=== PATIENT | female | born 1990 | race Caucasian/White ===

== ENCOUNTER 2017-05-12 15:55 | Inpatient (IN) | payer MEDICAID, OTHER ==
[~2017-05-12] VITALS: Ht 167.6 cm; Wt 67.6 kg
[2017-05-12 17:54] LABS: Albumin 2.4 g/dL (3.4-5.0); BUN/Creatinine Ratio 9.3; Calcium 8.7 mg/dL (8.5-10.1); Potassium 3.6 mmol/L (3.5-5.1)
[2017-05-12 17:58] LABS: Bilirubin, Total 0.9 mg/dL (0.2-1.0); Total Protein 6.3 g/dL (6.4-8.2)
[2017-05-12] MEDS ORDERED: PREN27TA7 PO (18:07)
[2017-05-12] MEDS ORDERED: LACT. RINGERS/OXYTOCIN 20UNITS 1,000 ML IV SCH (18:43)
[2017-05-12] MEDS ORDERED: NALBUPHINE HCL 10 MG/1ml INJECTION IV PRN (18:45)
[2017-05-12] MEDS ORDERED: LIDOCAINE 2%HCL (LOCAL ANESTH.) INJ 20ML MDV IJ ONE (18:45)
[2017-05-12] MEDS ORDERED: METHYLERGONOVINE MALEATE 0.2 MG/ML AMP IM PRN (18:45)
[2017-05-12] MEDS ORDERED: PHISODERM TOP SOLN 240ML BTL TOP PRN (18:45)
[2017-05-12] MEDS ORDERED: WITCH HAZEL-GLYCERIN PAD TOP PRN (18:45)
[2017-05-12] MEDS ORDERED: DERMOPLAST 60ML BOTTLE TOP PRN (18:45)
[2017-05-12 19:04] LABS: Urine Bilirubin Negative (Negative); Urine Blood TRACE /uL (Negative); Urine Color Yellow (Yellow); Urine Glucose 1+ mg/dL (Normal); Urine Ketone 1+ (Negative); Urine Mucus FEW (None Seen); Urine Nitrite Negative (Negative); Urine RBC 6 /hpf (0 - 4); Urine Squamous Epithelial Cell MOD /hpf (<5); Urine Urobilinogen Normal (Negative)
[2017-05-12 19:40] LABS: Basophils # (auto) 0 uL; Basophils % (auto) 0.5 % (0.0-2.0); Eosinophils # (auto) 0.1 uL; Eosinophils % (auto) 0.9 % (0.0-7.0); Hematocrit 32.6 % (36.0-46.0); Hemoglobin 11.1 g/dL (12.2-16.2); Lymphocytes # (auto) 1.6 uL; Lymphocytes % (auto) 19.8 % (10.0-50.0); Mean Corpuscular Hemoglobin 30.3 pg (28.0-32.0); Mean Corpuscular Volume 89.2 fL (80.0-100.0); Mean Platelet Volume 10.4 fL (7.4-10.4); Monocytes # (auto) 0.6 uL; Neutrophils % (auto) 71.8 % (37.0-80.0); Platelet Count (auto) 199 10^3/uL (140-450); White Blood Cell 8.3 10^3/uL (4.4-10.8)
[2017-05-12 19:50] LABS: INR 0.9 (0.9-1.15); Prothrombin Time 9.8 sec (9.37-12.3)
[2017-05-12] MEDS: LACTATED RINGER'S 1,000 ML IV SCH (21:15)
[2017-05-12] MEDS: CLINDAMYCIN 900MG IV 50 ML IV SCH (21:45)
[2017-05-13] MEDS ORDERED: PROMETHAZINE HCL 25 MG/ML 1ML ONE (00:23)
[2017-05-13] MEDS ORDERED: PROMETHAZINE HCL 25 MG/ML 1ML IV PRN (00:30)
[2017-05-13] MEDS: LACTATED RINGER'S 1,000 ML IV SCH (02:43)
[2017-05-13] MEDS: CLINDAMYCIN 900MG IV 50 ML IV SCH (03:09)
[2017-05-13] MEDS ORDERED: fentaNYL CITRATE 100 MCG/2 ML VL IV ONE (04:45)
[2017-05-13] MEDS ORDERED: ePHEDrine SULFATE 50 MG/ML AMP IV ONE (04:45)
[2017-05-13] MEDS ORDERED: NALOXONE HCL 0.4 MG/ML VIAL IV ONE (04:45)
[2017-05-13] MEDS ORDERED: fentaNYL W ROPIVACAINE 150 ML EPI SCH (04:45)
[2017-05-13] MEDS ORDERED: LIDOCAINE 2%HCL (LOCAL ANESTH.) INJ 20ML MDV IJ ONE (04:45)
[2017-05-13] MEDS ORDERED: LIDOCAINE HCL 2 %PF INJ 10ML AMP IJ ONE (04:47)
[2017-05-13] MEDS ORDERED: ACETAMINOPHEN 325 MG TAB PO ONE (06:21)
[2017-05-13] MEDS: ACETAMINOPHEN 325 MG TAB PO PRN ×4 (06:28→21:34)
[2017-05-13] MEDS ORDERED: DOCUSATE CALCIUM 240 MG CAP PO SCH (10:00)
[2017-05-13 11:53] VITALS: BP 105/55
[2017-05-13] MEDS ORDERED: TETANUS-DIPTH-ACEL PERTUSSIS 0.5ML SYRG IM ONE (15:15)
[2017-05-13 15:53] VITALS: BP 121/67
[2017-05-13 20:00] VITALS: BP 111/53
[2017-05-13 23:30] VITALS: BP 106/52
[2017-05-14] MEDS: ACETAMINOPHEN 325 MG TAB PO PRN ×3 (02:33→18:54)
[2017-05-14 03:23] VITALS: BP 108/69
[2017-05-14 08:00] VITALS: BP 112/72
[2017-05-14 12:00] VITALS: BP 117/58
[2017-05-14 16:00] VITALS: BP 111/62
[2017-05-14 20:00] VITALS: BP 114/69
[2017-05-15] VITALS: BP 112/55
[2017-05-15 03:00] VITALS: BP 114/59
[2017-05-15 08:00] VITALS: BP 122/82
== END 2017-05-15 10:40 | disposition home or self-care (01) | DRG 560 ==
LOC: LDRP 15:55 → OBSVTOIN 15:55 → LDRP 18:55
PROVIDERS: ADMIT Specialist; ATTEND Specialist
PROC: 10E0XZZ Delivery of Products of Conception, External Approach (ICD-10-PCS; principal; 2017-05-13)
DX: O26.62 Liver and biliary tract disorders in childbirth (principal); K83.1 Obstruction of bile duct; O69.81X0 Labor and delivery complicated by cord around neck, without compression, not applicable or unspecified; Z37.0 Single live birth; Z3A.39 39 weeks gestation of pregnancy; Z3A.38 38 weeks gestation of pregnancy; Z23 Encounter for immunization
CPT/HCPCS: 36415; 59025; 59409; 80053; 80307; 81001; 81002; 85025; 85610; 85730; 86592; 86703; 86762; 86850; 86900; 86901; 87340; 90715; 96365; 96366; J2590; J3010; J3490